=== PATIENT | female | born 1970 | race African-American/Black ===

== ENCOUNTER 2017-01-11 10:57 | Emergency (ER) | payer SELFPAY ==
[~2017-01-11] VITALS: Ht 157.5 cm; Wt 75.0 kg
[2017-01-11 13:57] VITALS: BP 115/75
== END 2017-01-11 15:06 | disposition home or self-care (01) ==
LOC: ER 12:03
DX: Z76.0 Encounter for issue of repeat prescription (principal); F41.9 Anxiety disorder, unspecified
CPT/HCPCS: 99283; Z7610

== ENCOUNTER 2017-01-28 12:59 | Emergency (ER) | payer MEDICAID ==
[~2017-01-28] VITALS: Ht 157.5 cm; Wt 70.0 kg
[2017-01-28] MEDS ORDERED: PREDNISONE 20MG TABLET PO STA (13:57)
[2017-01-28] MEDS ORDERED: ALBUTEROL (0.083%) 2.5MG/3ML NEB HHN STA (13:57)
[2017-01-28 14:49] VITALS: BP 126/67
== END 2017-01-28 16:12 | disposition home or self-care (01) ==
LOC: ER 13:34
DX: J20.9 Acute bronchitis, unspecified (principal); R03.0 Elevated blood-pressure reading, without diagnosis of hypertension
CPT/HCPCS: 71010; 81025; 94640; 99283; J7512; J7611

== ENCOUNTER 2017-06-21 20:32 | Emergency (ER) | payer MEDICAID ==
[~2017-06-21 20:32] MED LIST: ASPI-864 PO; CLON1TAB4 PO; COR3 PO; DOCU-138 PO; IBUP-1636 PO
== END 2017-06-22 01:30 | disposition left against medical advice (07) ==
LOC: ER 06-22 00:05
DX: F41.9 Anxiety disorder, unspecified (principal); R07.89 Other chest pain; Z53.21 Procedure and treatment not carried out due to patient leaving prior to being seen by health care provider

== ENCOUNTER 2017-06-27 11:24 | Emergency (ER) | payer SELFPAY ==
[~2017-06-27] VITALS: Ht 157.5 cm; Wt 70.0 kg
[2017-06-27] MEDS ORDERED: MORPHINE SULFATE 4 MG/ML CPJ (NOT FOR IM USE) IV STA (12:21)
[2017-06-27] MEDS ORDERED: LORAZEPAM 2MG/ML CPJ IM ONE (12:30)
[2017-06-27 13:10] LABS: BASOPHILS % 0.7 % (0.0-2.0); EOSINOPHILS % 0.7 % (0.0-5.0); HEMATOCRIT. 37.5 % (36.0-48.0); HEMOGLOBIN. 12.3 g/dL (12.0-16.0); MEAN CORPUSCULAR HEMOGLOBIN 27.3 pg (28.0-32.0); MEAN CORPUSCULAR VOLUME 83.2 fL (81.0-99.0); MEAN PLATELET VOLUME 10.1 fl (7.4-10.4); MONOCYTES % 9.4 % (2.0-8.0); NEUTROPHILS % 71.2 % (40.0-76.0); PLATELET 182 x1000/uL (130-400); RED BLOOD CELL COUNT 4.51 mill/uL (4.2-5.4); RED CELL DISTRIBUTION WIDTH 14.1 % (11.6-14.6)
[2017-06-27 13:17] LABS: CHLORIDE 104 mEq/L (98-107)
[2017-06-27 15:07] VITALS: BP 140/76
== END 2017-06-27 15:58 | disposition home or self-care (01) ==
LOC: ER 12:02
DX: F41.9 Anxiety disorder, unspecified (principal); I10 Essential (primary) hypertension; Z79.82 Long term (current) use of aspirin
CPT/HCPCS: 36415; 71045; 80053; 84484; 85025; 93005; 99285; J2060; J2270; Z7610